=== PATIENT | male | born 1960 | race Caucasian/White ===

== ENCOUNTER 2018-02-21 11:14 | Emergency (ER) | payer BC ==
[~2018-02-21] VITALS: Ht 170.2 cm; Wt 124.7 kg
[~2018-02-21 11:14] MED LIST: ACEDIPPM PO; ASPI81CH PO; BUSP15 PO; ESCI20 PO; IBUP100S; IBUP400 PO; LISHYD1012; LISI20 PO; LISI5 PO; MAGOXI400 PO; METO100ER; METO50 PO; MULT50L; OXYC5 PO; PRAV20 PO; PRAVASTATIN SOD10 MG; RANI150 PO; WARF4 PO
[2018-02-21 11:40] LABS: BASOPHILS ABSOLUTE AUTO 0.03 K/mm3 (0.00-0.23); BASOPHILS PERCENT AUTO 0 % (0-2); EOSINOPHILS ABSOLUTE AUTO 0.01 K/mm3 (0.00-0.68); EOSINOPHILS PERCENT AUTO 0 % (0-6); Hematocrit 39.2 % (37.0-53.0); Hemoglobin 13.5 g/dL (13.5-17.5); IMMATURE GRAN ABSOLUTE AUTO 0.06 K/mm3 (0.00-0.10); IMMATURE GRAN PERCENT AUTO 1 % (0-1); LYMPHOCYTES ABSOLUTE AUTO 0.67 K/mm3 (0.84-5.20); LYMPHOCYTES PERCENT AUTO 7 % (21-46); MONOCYTES ABSOLUTE AUTO 0.64 K/mm3 (0.16-1.47); MONOCYTES PERCENT AUTO 7 % (4-13); Mean Corpuscular HGB 32.5 pg (26.0-34.0); Mean Corpuscular HGB Conc 34.4 g/dL (31.5-36.5); Mean Corpuscular Volume 95 fL (80-100); Mean Platelet Volume 8.5 fL (9.1-12.4); NEUTROPHILS ABSOLUTE AUTO 7.88 K/mm3 (1.96-9.15); NEUTROPHILS PERCENT AUTO 85 % (41-73); Platelet Count 308 K/mm3 (150-400); RDW Coefficient Variation 12.4 % (11.7-14.2); RDW Standard Deviation 43.3 fL (35.1-46.3); Red Blood Cell Count 4.15 M/mm3 (4.30-5.90); White Blood Cell Count 9.29 K/mm3 (4.00-11.30)
[2018-02-21 11:50] LABS: International Normalized Ratio 0.99; Prothrombin Time Results 10.2 Sec (9.7-11.5)
[2018-02-21 11:57] LABS: Alanine Aminotransfer (ALT/SGP 43 U/L (12-78); Albumin, Blood 4.2 g/dL (3.4-5.0); Albumin/Globulin Ratio 1.2 (0.8-1.8); Alk Phos 102 U/L (50-136); Anion Gap 10 mmol/L (6-16); Aspartate Aminotrans (AST/SGOT 32 U/L (12-37); Bilirubin, Total 0.9 mg/dL (0.1-1.0); Blood Urea Nitrogen 12 mg/dL (8-24); CO2, Blood 23 mmol/L (21-32); Chloride, Blood 95 mmol/L (98-108); Creatinine, Blood 0.75 mg/dL (0.60-1.20); Globulin, Blood 3.6 g/dL (2.2-4.0); Glomerular Filtration Rate >60 (60-); Glucose, Blood 172 mg/dL (70-99); Potassium, Blood 3.9 mmol/L (3.5-5.5); Sodium, Blood 128 mmol/L (136-145); Total Protein, Blood 7.8 g/dL (6.4-8.2)
[2018-02-21] MEDS ORDERED: Hydroxyzine HCl50 MG (12:00)
[2018-02-21] MEDS ORDERED: METO100ER PO (12:00)
[2018-02-21] MEDS ORDERED: Pantoprazole So40 MG PO (12:01)
[2018-02-21] MEDS ORDERED: HYDCHL25 PO (12:01)
[2018-02-21] MEDS ORDERED: Buspirone HCl7.5 MG PO (12:01)
[2018-02-21] MEDS ORDERED: AMLO10 PO (12:01)
== END 2018-02-21 14:08 | disposition home or self-care (01) ==
LOC: ER 11:14
PROVIDERS: Emergency Medicine
DX: R56.9 Unspecified convulsions (principal); Z79.899 Other long term (current) drug therapy; Z79.01 Long term (current) use of anticoagulants; I10 Essential (primary) hypertension; Z87.891 Personal history of nicotine dependence
CPT/HCPCS: 70450; 80053; 85025; 85610; 93005; 93010; 96361; 96374; 99285-25; J2060; J7030

== ENCOUNTER 2018-02-21 15:46 | Inpatient (IN) | payer BC ==
[~2018-02-21] VITALS: Ht 180.3 cm; Wt 130.0 kg
[~2018-02-21 15:46] MED LIST changes: +AMLO10 PO; +Buspirone HCl7.5 MG PO; +HYDCHL25 PO; +Hydroxyzine HCl50 MG; +METO100ER PO; +Pantoprazole So40 MG PO
[2018-02-21 20:20] LABS: BASOPHILS ABSOLUTE AUTO 0.05 K/mm3 (0.00-0.23); BASOPHILS PERCENT AUTO 1 % (0-2); EOSINOPHILS ABSOLUTE AUTO 0.04 K/mm3 (0.00-0.68); EOSINOPHILS PERCENT AUTO 0 % (0-6); Hemoglobin 13.4 g/dL (13.5-17.5); IMMATURE GRAN ABSOLUTE AUTO 0.09 K/mm3 (0.00-0.10); IMMATURE GRAN PERCENT AUTO 1 % (0-1); LYMPHOCYTES ABSOLUTE AUTO 1.14 K/mm3 (0.84-5.20); LYMPHOCYTES PERCENT AUTO 10 % (21-46); MONOCYTES ABSOLUTE AUTO 1.08 K/mm3 (0.16-1.47); MONOCYTES PERCENT AUTO 10 % (4-13); Mean Corpuscular HGB 33.2 pg (26.0-34.0); Mean Corpuscular HGB Conc 35.3 g/dL (31.5-36.5); Mean Corpuscular Volume 94 fL (80-100); Mean Platelet Volume 8.4 fL (9.1-12.4); NEUTROPHILS ABSOLUTE AUTO 8.71 K/mm3 (1.96-9.15); NEUTROPHILS PERCENT AUTO 78 % (41-73); Platelet Count 308 K/mm3 (150-400); RDW Coefficient Variation 12.5 % (11.7-14.2); RDW Standard Deviation 43.8 fL (35.1-46.3); Red Blood Cell Count 4.04 M/mm3 (4.30-5.90); White Blood Cell Count 11.11 K/mm3 (4.00-11.30)
[2018-02-21 20:33] LABS: Alanine Aminotransfer (ALT/SGP 47 U/L (12-78); Albumin, Blood 4.3 g/dL (3.4-5.0); Albumin/Globulin Ratio 1.2 (0.8-1.8); Alk Phos 100 U/L (50-136); Anion Gap 12 mmol/L (6-16); Aspartate Aminotrans (AST/SGOT 36 U/L (12-37); Bilirubin, Total 0.8 mg/dL (0.1-1.0); Blood Urea Nitrogen 12 mg/dL (8-24); CO2, Blood 19 mmol/L (21-32); Calcium, Blood 9.2 mg/dL (8.5-10.1); Chloride, Blood 97 mmol/L (98-108); Globulin, Blood 3.6 g/dL (2.2-4.0); Glomerular Filtration Rate >60 (60-); Glucose, Blood 128 mg/dL (70-99); Potassium, Blood 4.4 mmol/L (3.5-5.5); Sodium, Blood 128 mmol/L (136-145); Total Protein, Blood 7.9 g/dL (6.4-8.2)
[2018-02-21 23:33] LABS: U Amphetamine Screen Not Detected; U Barbituate Screen Not Detected; U Benzodiazapine Screen DETECTED; U Buprenorphine Screen Not Detected; U Cannabinoids Screen Not Detected; U Cocaine Screen Not Detected; U Methadone Screen Not Detected; U Methamphetamine Screen Not Detected; U Opiates Screen Not Detected; U Oxycodone Screen Not Detected; U Phencyclidine Screen Not Detected; U Propoxyphene Screen Not Detected
[2018-02-22 03:42] LABS: Albumin, Blood 3.6 g/dL (3.4-5.0); Anion Gap 9 mmol/L (6-16); Blood Urea Nitrogen 11 mg/dL (8-24); Bun/Creatinine Ratio 14.7 (12.0-20.0); CO2, Blood 23 mmol/L (21-32); Calcium, Blood 8.7 mg/dL (8.5-10.1); Chloride, Blood 100 mmol/L (98-108); Creatinine, Blood 0.75 mg/dL (0.60-1.20); Glomerular Filtration Rate >60 (60-); Glucose, Blood 109 mg/dL (70-99); Phosphorus, Blood 3.8 mg/dL (2.5-4.9); Potassium, Blood 4.3 mmol/L (3.5-5.5); Sodium, Blood 132 mmol/L (136-145)
[2018-02-23 03:56] LABS: BASOPHILS ABSOLUTE AUTO 0.04 K/mm3 (0.00-0.23); BASOPHILS PERCENT AUTO 1 % (0-2); EOSINOPHILS ABSOLUTE AUTO 0.14 K/mm3 (0.00-0.68); EOSINOPHILS PERCENT AUTO 2 % (0-6); Hematocrit 36.2 % (37.0-53.0); Hemoglobin 12.2 g/dL (13.5-17.5); IMMATURE GRAN ABSOLUTE AUTO 0.06 K/mm3 (0.00-0.10); IMMATURE GRAN PERCENT AUTO 1 % (0-1); LYMPHOCYTES ABSOLUTE AUTO 0.87 K/mm3 (0.84-5.20); LYMPHOCYTES PERCENT AUTO 10 % (21-46); MONOCYTES ABSOLUTE AUTO 1.08 K/mm3 (0.16-1.47); MONOCYTES PERCENT AUTO 12 % (4-13); Mean Corpuscular HGB Conc 33.7 g/dL (31.5-36.5); Mean Corpuscular Volume 95 fL (80-100); Mean Platelet Volume 8.6 fL (9.1-12.4); NEUTROPHILS ABSOLUTE AUTO 6.68 K/mm3 (1.96-9.15); NEUTROPHILS PERCENT AUTO 75 % (41-73); Platelet Count 279 K/mm3 (150-400); RDW Coefficient Variation 12.6 % (11.7-14.2); Red Blood Cell Count 3.81 M/mm3 (4.30-5.90); White Blood Cell Count 8.87 K/mm3 (4.00-11.30)
[2018-02-23 04:17] LABS: Alanine Aminotransfer (ALT/SGP 38 U/L (12-78); Albumin, Blood 3.7 g/dL (3.4-5.0); Albumin/Globulin Ratio 1.1 (0.8-1.8); Alk Phos 89 U/L (50-136); Anion Gap 9 mmol/L (6-16); Aspartate Aminotrans (AST/SGOT 31 U/L (12-37); Bilirubin, Total 0.7 mg/dL (0.1-1.0); Blood Urea Nitrogen 10 mg/dL (8-24); Bun/Creatinine Ratio 14.3 (12.0-20.0); CO2, Blood 26 mmol/L (21-32); Calcium, Blood 8.7 mg/dL (8.5-10.1); Chloride, Blood 97 mmol/L (98-108); Globulin, Blood 3.5 g/dL (2.2-4.0); Glomerular Filtration Rate >60 (60-); Glucose, Blood 93 mg/dL (70-99); Phosphorus, Blood 3.9 mg/dL (2.5-4.9); Potassium, Blood 4.3 mmol/L (3.5-5.5); Sodium, Blood 132 mmol/L (136-145); Total Protein, Blood 7.2 g/dL (6.4-8.2)
[2018-02-24 03:55] LABS: Albumin, Blood 3.5 g/dL (3.4-5.0); Anion Gap 8 mmol/L (6-16); Blood Urea Nitrogen 18 mg/dL (8-24); Bun/Creatinine Ratio 23.2 (12.0-20.0); CO2, Blood 23 mmol/L (21-32); Calcium, Blood 8.8 mg/dL (8.5-10.1); Chloride, Blood 98 mmol/L (98-108); Creatinine, Blood 0.78 mg/dL (0.60-1.20); Glomerular Filtration Rate >60 (60-); Glucose, Blood 105 mg/dL (70-99); Phosphorus, Blood 4.5 mg/dL (2.5-4.9); Potassium, Blood 4.2 mmol/L (3.5-5.5); Sodium, Blood 129 mmol/L (136-145)
[2018-02-24] MEDS ORDERED: Aspir 8181 MG PO (13:19)
== END 2018-02-24 13:45 | disposition home or self-care (01) | DRG 640 ==
LOC: ER 15:46 → ICUE 15:47 → ICUW 15:47 → ICUE 21:02
PROVIDERS: Emergency Medicine; Family Medicine; ADMIT Internal Medicine Endocrinology, Diabetes & Metabolism
DX: E87.1 Hypo-osmolality and hyponatremia (principal); G93.41 Metabolic encephalopathy; R47.01 Aphasia; Z68.41 Body mass index [BMI] 40.0-44.9, adult; I10 Essential (primary) hypertension; G43.909 Migraine, unspecified, not intractable, without status migrainosus; G47.33 Obstructive sleep apnea (adult) (pediatric); E66.01 Morbid (severe) obesity due to excess calories; K21.9 Gastro-esophageal reflux disease without esophagitis; F41.1 Generalized anxiety disorder; Z86.73 Personal history of transient ischemic attack (TIA), and cerebral infarction without residual deficits; Z79.82 Long term (current) use of aspirin; Z87.891 Personal history of nicotine dependence
CPT/HCPCS: 36415; 70450; 70551; 80053; 80069; 84100; 85025; 85610; 93005; 93010; 96361; 96372; 96374; 99285-25; J1630; J2060; J7030; Q3014

== ENCOUNTER 2018-03-11 18:52 | Emergency (ER) | payer BC ==
[~2018-03-11] VITALS: Ht 177.8 cm; Wt 136.1 kg
[~2018-03-11 18:52] MED LIST changes: +Aspir 8181 MG PO
[2018-03-11 19:20] LABS: BASOPHILS ABSOLUTE AUTO 0.04 K/mm3 (0.00-0.23); BASOPHILS PERCENT AUTO 1 % (0-2); EOSINOPHILS ABSOLUTE AUTO 0.06 K/mm3 (0.00-0.68); EOSINOPHILS PERCENT AUTO 1 % (0-6); Hematocrit 37.3 % (37.0-53.0); Hemoglobin 12.6 g/dL (13.5-17.5); IMMATURE GRAN ABSOLUTE AUTO 0.02 K/mm3 (0.00-0.10); IMMATURE GRAN PERCENT AUTO 0 % (0-1); LYMPHOCYTES ABSOLUTE AUTO 1.17 K/mm3 (0.84-5.20); LYMPHOCYTES PERCENT AUTO 14 % (21-46); MONOCYTES ABSOLUTE AUTO 0.81 K/mm3 (0.16-1.47); MONOCYTES PERCENT AUTO 10 % (4-13); Mean Corpuscular HGB 32.5 pg (26.0-34.0); Mean Corpuscular HGB Conc 33.8 g/dL (31.5-36.5); Mean Corpuscular Volume 96 fL (80-100); Mean Platelet Volume 8.4 fL (9.1-12.4); NEUTROPHILS ABSOLUTE AUTO 6.11 K/mm3 (1.96-9.15); NEUTROPHILS PERCENT AUTO 74 % (41-73); Platelet Count 397 K/mm3 (150-400); RDW Coefficient Variation 13.2 % (11.7-14.2); RDW Standard Deviation 46.5 fL (35.1-46.3); Red Blood Cell Count 3.88 M/mm3 (4.30-5.90); White Blood Cell Count 8.21 K/mm3 (4.00-11.30)
[2018-03-11 19:44] LABS: Alanine Aminotransfer (ALT/SGP 34 U/L (12-78); Albumin, Blood 3.7 g/dL (3.4-5.0); Albumin/Globulin Ratio 1.1 (0.8-1.8); Alk Phos 84 U/L (50-136); Anion Gap 10 mmol/L (6-16); Aspartate Aminotrans (AST/SGOT 27 U/L (12-37); Bilirubin, Total 0.4 mg/dL (0.1-1.0); Blood Urea Nitrogen 9 mg/dL (8-24); CO2, Blood 25 mmol/L (21-32); Calcium, Blood 8.9 mg/dL (8.5-10.1); Chloride, Blood 101 mmol/L (98-108); Creatinine, Blood 0.69 mg/dL (0.60-1.20); Globulin, Blood 3.4 g/dL (2.2-4.0); Glomerular Filtration Rate >60 (60-); Glucose, Blood 112 mg/dL (70-99); Potassium, Blood 3.7 mmol/L (3.5-5.5); Sodium, Blood 136 mmol/L (136-145); Total Protein, Blood 7.1 g/dL (6.4-8.2); Troponin I <0.015 ng/mL (0.000-0.040)
== END 2018-03-11 22:10 | disposition home or self-care (01) ==
LOC: ER 18:52
PROVIDERS: Emergency Medicine
DX: M54.12 Radiculopathy, cervical region (principal); Z79.899 Other long term (current) drug therapy; Z79.82 Long term (current) use of aspirin; I10 Essential (primary) hypertension; Z86.73 Personal history of transient ischemic attack (TIA), and cerebral infarction without residual deficits
CPT/HCPCS: 70450; 72125; 80053; 84484; 85025; 93005; 93010; 99284-25

== ENCOUNTER 2018-12-19 21:53 | Emergency (ER) | payer SELFPAY ==
[~2018-12-19] VITALS: Ht 177.8 cm; Wt 133.8 kg
[2018-12-19] MEDS ORDERED: Ativan1 MG PO (22:59)
[2018-12-21] MEDS ORDERED: AMLO10 (08:32)
[2018-12-21] MEDS ORDERED: BUSP5 (08:33)
== END 2018-12-19 23:30 | disposition home or self-care (01) ==
LOC: ER 21:53
DX: F41.0 Panic disorder [episodic paroxysmal anxiety] (principal); I10 Essential (primary) hypertension; Z86.73 Personal history of transient ischemic attack (TIA), and cerebral infarction without residual deficits; Z87.891 Personal history of nicotine dependence; Z79.899 Other long term (current) drug therapy
CPT/HCPCS: 99283

== ENCOUNTER 2021-02-09 22:42 | Inpatient (IN) | payer OTHER ==
[~2021-02-09] VITALS: Ht 175.3 cm; Wt 163.3 kg
[~2021-02-09 22:42] MED LIST changes: +Ativan1 MG PO; +BUSPIRONE HCL7.5 M1 PO; -LISI5 PO
[2021-02-10 00:29] LABS: BASOPHILS ABSOLUTE AUTO 0.03 K/mm3 (0.00-0.23); BASOPHILS PERCENT AUTO 0 % (0-2); EOSINOPHILS ABSOLUTE AUTO 0.07 K/mm3 (0.00-0.68); EOSINOPHILS PERCENT AUTO 1 % (0-6); Hematocrit 42.9 % (37.0-53.0); Hemoglobin 15.4 g/dL (13.5-17.5); IMMATURE GRAN ABSOLUTE AUTO 0.06 K/mm3 (0.00-0.10); IMMATURE GRAN PERCENT AUTO 1 % (0-1); LYMPHOCYTES ABSOLUTE AUTO 0.87 K/mm3 (0.84-5.20); LYMPHOCYTES PERCENT AUTO 9 % (21-46); MONOCYTES PERCENT AUTO 10 % (4-13); Mean Corpuscular HGB 32.9 pg (26.0-34.0); Mean Corpuscular HGB Conc 35.9 g/dL (31.5-36.5); Mean Corpuscular Volume 92 fL (80-100); Mean Platelet Volume 9.5 fL (9.1-12.4); NEUTROPHILS ABSOLUTE AUTO 7.55 K/mm3 (1.96-9.15); NEUTROPHILS PERCENT AUTO 80 % (41-73); Platelet Count 328 K/mm3 (150-400); RDW Coefficient Variation 11.8 % (11.7-14.2); RDW Standard Deviation 39.8 fL (35.1-46.3); Red Blood Cell Count 4.68 M/mm3 (4.30-5.90); White Blood Cell Count 9.48 K/mm3 (4.00-11.30)
[2021-02-10 00:36] LABS: Alanine Aminotransfer (ALT/SGP 102 U/L (12-78); Albumin, Blood 3.7 g/dL (3.4-5.0); Alk Phos 85 U/L (50-136); Anion Gap 11 mmol/L (6-16); Aspartate Aminotrans (AST/SGOT 42 U/L (12-37); Bilirubin, Total 0.8 mg/dL (0.1-1.0); Blood Urea Nitrogen 16 mg/dL (8-24); Bun/Creatinine Ratio 20.6 (12.0-20.0); CO2, Blood 26 mmol/L (21-32); Calcium, Blood 9.1 mg/dL (8.5-10.1); Chloride, Blood 84 mmol/L (98-108); Creatinine, Blood 0.78 mg/dL (0.60-1.20); Ethanol (Alcohol), Blood, Med <3 mg/dL; Globulin, Blood 3.7 g/dL (2.2-4.0); Glomerular Filtration Rate >60 (60-); Glucose, Blood 240 mg/dL (70-99); Potassium, Blood 3.5 mmol/L (3.5-5.5); Sodium, Blood 121 mmol/L (136-145); Total Protein, Blood 7.4 g/dL (6.4-8.2)
[2021-02-10 01:29] LABS: Source, Urine Clean Catch
[2021-02-10 01:47] LABS: Appearance, Urine Clear (Clear); Bilirubin, Urine Neg (Neg); Blood, Urine Neg (Neg); Color, Urine Yellow (P-Yellow); Glucose Qualitative, Urine 4+ (Neg); Ketones, Urine 3+ (Neg); Leukocyte Esterase, Urine Neg (Neg); Nitrite, Urine Neg (Neg); Protein, Urine 1+ (Neg); Specific Gravity, Urine 1.015 (1.003-1.022); Urobilinogen, Urine NORM (Normal)
[2021-02-10 02:13] LABS: U Amphetamine Screen Not Detected; U Barbituate Screen Not Detected; U Benzodiazapine Screen Not Detected; U Buprenorphine Screen Not Detected; U Cannabinoids Screen Not Detected; U Cocaine Screen Not Detected; U Methadone Screen Not Detected; U Methamphetamine Screen Not Detected; U Opiates Screen Not Detected; U Oxycodone Screen Not Detected; U Phencyclidine Screen Not Detected; U Propoxyphene Screen Not Detected
[2021-02-10 06:23] LABS: BASOPHILS ABSOLUTE AUTO 0.04 K/mm3 (0.00-0.23); BASOPHILS PERCENT AUTO 0 % (0-2); EOSINOPHILS ABSOLUTE AUTO 0.12 K/mm3 (0.00-0.68); EOSINOPHILS PERCENT AUTO 1 % (0-6); Hematocrit 42.8 % (37.0-53.0); Hemoglobin 15.8 g/dL (13.5-17.5); IMMATURE GRAN ABSOLUTE AUTO 0.08 K/mm3 (0.00-0.10); IMMATURE GRAN PERCENT AUTO 1 % (0-1); LYMPHOCYTES ABSOLUTE AUTO 1.09 K/mm3 (0.84-5.20); LYMPHOCYTES PERCENT AUTO 11 % (21-46); MONOCYTES ABSOLUTE AUTO 1.12 K/mm3 (0.16-1.47); MONOCYTES PERCENT AUTO 11 % (4-13); Mean Corpuscular HGB 33.6 pg (26.0-34.0); Mean Corpuscular HGB Conc 36.9 g/dL (31.5-36.5); Mean Corpuscular Volume 91 fL (80-100); Mean Platelet Volume 9.4 fL (9.1-12.4); NEUTROPHILS ABSOLUTE AUTO 7.91 K/mm3 (1.96-9.15); NEUTROPHILS PERCENT AUTO 76 % (41-73); Platelet Count 319 K/mm3 (150-400); RDW Coefficient Variation 11.8 % (11.7-14.2); RDW Standard Deviation 39.5 fL (35.1-46.3); White Blood Cell Count 10.36 K/mm3 (4.00-11.30)
[2021-02-10 06:52] LABS: Anion Gap 9 mmol/L (6-16); Blood Urea Nitrogen 14 mg/dL (8-24); Bun/Creatinine Ratio 18.8 (12.0-20.0); CO2, Blood 27 mmol/L (21-32); Calcium, Blood 9.3 mg/dL (8.5-10.1); Chloride, Blood 87 mmol/L (98-108); Creatinine, Blood 0.75 mg/dL (0.60-1.20); Glomerular Filtration Rate >60 (60-); Glucose, Blood 180 mg/dL (70-99); Potassium, Blood 3.6 mmol/L (3.5-5.5); Sodium, Blood 123 mmol/L (136-145)
[2021-02-10 08:49] LABS: Anion Gap 9 mmol/L (6-16); Blood Urea Nitrogen 14 mg/dL (8-24); Bun/Creatinine Ratio 21.5 (12.0-20.0); CO2, Blood 26 mmol/L (21-32); Calcium, Blood 9.1 mg/dL (8.5-10.1); Chloride, Blood 88 mmol/L (98-108); Creatinine, Blood 0.65 mg/dL (0.60-1.20); Glomerular Filtration Rate >60 (60-); Glucose, Blood 197 mg/dL (70-99); Potassium, Blood 3.8 mmol/L (3.5-5.5); Sodium, Blood 123 mmol/L (136-145)
[2021-02-10 13:46] LABS: Anion Gap 9 mmol/L (6-16); Blood Urea Nitrogen 14 mg/dL (8-24); Bun/Creatinine Ratio 20.4 (12.0-20.0); CO2, Blood 25 mmol/L (21-32); Calcium, Blood 9.1 mg/dL (8.5-10.1); Chloride, Blood 90 mmol/L (98-108); Creatinine, Blood 0.69 mg/dL (0.60-1.20); Glomerular Filtration Rate >60 (60-); Glucose, Blood 201 mg/dL (70-99); Sodium, Blood 124 mmol/L (136-145)
[2021-02-10] MEDS ORDERED: INSULIN AS100 UNIT/8 SC (16:00)
[2021-02-10] MEDS ORDERED: HYDCHL25 PO (16:02)
[2021-02-10] MEDS ORDERED: METF500 PO (16:04)
[2021-02-10] MEDS ORDERED: PANTOPRAZOLE SO40 M2 PO (16:04)
[2021-02-10 17:16] LABS: Anion Gap 8 mmol/L (6-16); Blood Urea Nitrogen 14 mg/dL (8-24); Bun/Creatinine Ratio 18.4 (12.0-20.0); CO2, Blood 26 mmol/L (21-32); Calcium, Blood 9.3 mg/dL (8.5-10.1); Chloride, Blood 92 mmol/L (98-108); Creatinine, Blood 0.76 mg/dL (0.60-1.20); Glomerular Filtration Rate >60 (60-); Glucose, Blood 137 mg/dL (70-99); Potassium, Blood 4.3 mmol/L (3.5-5.5); Sodium, Blood 126 mmol/L (136-145)
--- NOTE | 2021-02-10 18:40 | NUR ---
pt needs a lot of repeating to help him understand simple things. spoke to his niece who is a nurse and she states he is childlike. he is cooperative with care, no acute changes this shift. call light in reach.
[2021-02-11 04:28] LABS: Albumin, Blood 3.6 g/dL (3.4-5.0); Anion Gap 10 mmol/L (6-16); Blood Urea Nitrogen 13 mg/dL (8-24); Bun/Creatinine Ratio 17.7 (12.0-20.0); CO2, Blood 27 mmol/L (21-32); Chloride, Blood 92 mmol/L (98-108); Creatinine, Blood 0.74 mg/dL (0.60-1.20); Glomerular Filtration Rate >60 (60-); Glucose, Blood 160 mg/dL (70-99); Magnesium, Blood 1.8 mg/dL (1.6-2.4); Phosphorus, Blood 3.3 mg/dL (2.5-4.9); Potassium, Blood 4.1 mmol/L (3.5-5.5); Sodium, Blood 129 mmol/L (136-145)
--- NOTE | 2021-02-11 05:44 | NUR ---
PT HAS BEEN AWAKE FOR MOST OF THE NIGHT, ABLE TO ANSWER ALL ORIENTATION QUESTIONS, HOWEVER HE HAS BEEN CONFUSED AND AT TIMES DISORGANIZED SPEECH. PT LS DIM FROM LOWER TO MIDDLE. BLE 3+ EDEMA. DISTENDED ABD, PT STATES IS NORMAL.IV INFUSING NS AT 125. PT MAKES NO COMPLAINTS. STAFF WILL CONT TO MONITOR.
--- NOTE | 2021-02-11 08:20 | NUR ---
Initial Assessment with [facility] Community Spinning Machine Tender 1. Who did you speak with? Spoke with patient and spoke with arlen Cavanaugh over the phone. 2. What is the patient's prior level of functions? Patient lives independently in a two story home with 11 stairs. Patient able to perform basic housekeeping and cooking needs. Patient is somewhat confused and disoriented; worried about his truck and job orientation. Could not assess prior level of function. But patient was going to a job orientation for [employer] and his red [facility] ton extra cab is still parked by [facility] (per 's office). 3. What is the patient's current living situation? Patient lives independent and has a arlen Cavanaugh whom is an RN at [employer], 4. Is the patient and/or family able to provide transportation to and from doctor's appointments and picker tender prescriptions? Patient still drives and has transportation. 5. Does patient still drive? Yes 6. POA/PCP/NOK: PCP-Dr. Ronnie Dodd/NOK arlen Cavanaugh 7. ANTICIPATED DISCHARGE NEEDS/GOALS: TBD 8. List barriers to discharge: Limited support at home 9. Discharge Plan: TBD 10. PCP Follow up appointment: Will be scheduled within seven calendar days of discharge. 11. OTHER COMMENTS: Arlen Cavanaugh is an advocate for patient.
--- NOTE | 2021-02-11 12:31 | NUR ---
Spiritual care visit conducted. Patient is sitting on a chair and alert. Patient asks for reading glasses and reading material. Patient then shares about his medical issues, his personal struggles and his challenges to remain hopeful. I provide therapeutic listening and gentle food counselor as well as supply him with positive large print reading materials. Patient responds well and shows signs of increased hope. I will continue to remain available.
--- NOTE | 2021-02-11 18:12 | NUR ---
SHIFT SUMMARY 61 Y MALE ADMITTED WITH HYPONATREMIA. SODIUM IMPROVED TO 131 THIS MORNING AFTER STOPPING IVF X 2 HOURS. PT IS A&O, UP IND IN ROOM AND PLEASANT AND COOPERATIVE WITH CARE. PT DID HAVE HTN AT BEGINING OF SHIFT, IV MEDS GIVEN PER EMAR AND BP MED DOSE ADJUSTED BY . D/C PENDING FOR TOMORROW AM DEPENDING ON NA+ RESULTS AND BP'S. NO OTHER SHIFTS TO REPORT THIS SHIFT.
[2021-02-12 05:09] LABS: Albumin, Blood 3.3 g/dL (3.4-5.0); Anion Gap 7 mmol/L (6-16); Blood Urea Nitrogen 17 mg/dL (8-24); Bun/Creatinine Ratio 22.1 (12.0-20.0); CO2, Blood 27 mmol/L (21-32); Calcium, Blood 9.4 mg/dL (8.5-10.1); Chloride, Blood 99 mmol/L (98-108); Creatinine, Blood 0.77 mg/dL (0.60-1.20); Glomerular Filtration Rate >60 (60-); Glucose, Blood 131 mg/dL (70-99); Magnesium, Blood 2.1 mg/dL (1.6-2.4); Phosphorus, Blood 4.1 mg/dL (2.5-4.9); Potassium, Blood 4.4 mmol/L (3.5-5.5); Sodium, Blood 133 mmol/L (136-145)
--- NOTE | 2021-02-12 05:22 | NUR ---
SHIFT SUMMARY PT AOX2-3 AND PLEASANT WITH STAFF WHILE COOPERATIVE WITH CARE. PT TOOK A SHOWER AT THE START OF THIS SHIFT AND TOLERATED WELL INDEPENDENTLY. PT CAME OUT IN THE [place] NAKED TWICE BUT WAS EASY TO REDIRECT. PT. WAS MEDICATED PER EMAR AND RESTED WELL THIS SHIFT. PT STILL ASLEEP IN BED WITH RISE AND FALL OF CHEST. THIS NURSE WILL CONTINUE TO MONITOR UNTIL REPORT IS GIVEN.
[2021-02-12] MEDS ORDERED: NIFE90ER PO (10:13)
--- NOTE | 2021-02-12 10:29 | NUR ---
DISCHARGE NOTE D/C ORDERS RECIEVED AND REVIEWED. HOME MEDS CALLED IN TO PT'S PHARMACY OF CHOICE. D/C INSTRUDCTIONS AND EDUCATION REVIEWED WITH PT. PT VERBALIZED UNDERSTANDING AND AGREED WITH PLAN. RFA IV REMOVED INTACT WITHOUT DIFFICULTY, PT TOLERATED WELL. PT ESCORTED OUT VIA W/C AND TRANSPORTED HOME VIA PRIVATE VEHICLE.
--- NOTE | 2021-02-14 08:15 | NUR ---
Per Dr. Higgins discharge appropriate on 02/12/21. Patient does not oppose to discharge. Patient scheduled for discharged to his residence. Niece dropped off patient's truck; transportation provided by patient to residence. DME: none needed at this time. Patient's niece is an RN at [employer] and she is aware of patient's discharge and medical needs. [facility] Transition of Care will contact patient to schedule hospital follow up appointment with PCP. Home Health Agency of patient's choice will be contacted for assisted needs. No barriers to discharge at this time.
--- NOTE | 2021-02-15 08:43 | NUR ---
Received referral from [facility] General Distillery Worker (Elizabeth Jarvis OR Aliyah Díaz) yesterday- 02/13/2021. Patient was admitted to [facility] on 02/10/2021 due to hyponatremia. Patient discharged over the weekend- 02/12/2021 with orders for home health. Per referral today, patient elected [facility]. As patient discharged over the weekend, this freelance writer did not contact patient at home to confirm the above. All supporting documentation for referral (face sheet, face to face, med list, H&P, discharge summary, and most recent PT notes) was sent to [facility] for review. No further interventions required. Beata Cole Referral Liaison
== END 2021-02-12 10:28 | disposition home health service (06) | DRG 641 ==
LOC: ER 22:42 → ERHOLD 22:43 → MEDS 02-10 15:03
PROVIDERS: Family Medicine; Student in an Organized Health Care Education/Training Program; ADMIT Family Medicine
DX: E87.1 Hypo-osmolality and hyponatremia (principal); Z68.43 Body mass index [BMI] 50.0-59.9, adult; I10 Essential (primary) hypertension; E66.01 Morbid (severe) obesity due to excess calories; I25.10 Atherosclerotic heart disease of native coronary artery without angina pectoris; E11.9 Type 2 diabetes mellitus without complications; F41.9 Anxiety disorder, unspecified; F17.220 Nicotine dependence, chewing tobacco, uncomplicated; Z90.49 Acquired absence of other specified parts of digestive tract; Z86.73 Personal history of transient ischemic attack (TIA), and cerebral infarction without residual deficits; Z98.890 Other specified postprocedural states; Z79.899 Other long term (current) drug therapy; Z28.82 Immunization not carried out because of caregiver refusal
CPT/HCPCS: 36415; 70450; 80048; 80053; 80069; 82947; 83036; 83735; 84295; 85025; 93005; 93010; 96372; 99285-25; A9270; G0480; J0360; J1650; J7030

== ENCOUNTER 2024-09-19 12:26 | Inpatient (IN) | payer OTHER ==
[~2024-09-19] VITALS: Ht 182.9 cm; Wt 129.1 kg
[~2024-09-19 12:26] MED LIST changes: +INSULIN AS100 UNIT/8 SC; +METF500 PO; +NIFE90ER PO; +PANTOPRAZOLE SO40 M2 PO
[2024-09-19 13:10] LABS: BASOPHILS ABSOLUTE AUTO 0.03 K/mm3 (0.00-0.23); BASOPHILS PERCENT AUTO 0 % (0-2); EOSINOPHILS ABSOLUTE AUTO 0.00 K/mm3 (0.00-0.68); EOSINOPHILS PERCENT AUTO 0 % (0-6); Hematocrit 45.9 % (37.0-53.0); Hemoglobin 16.4 g/dL (13.5-17.5); IMMATURE GRAN ABSOLUTE AUTO 0.07 K/mm3 (0.00-0.10); IMMATURE GRAN PERCENT AUTO 0 % (0-1); LYMPHOCYTES ABSOLUTE AUTO 0.92 K/mm3 (0.84-5.20); LYMPHOCYTES PERCENT AUTO 6 % (21-46); MONOCYTES ABSOLUTE AUTO 1.10 K/mm3 (0.16-1.47); MONOCYTES PERCENT AUTO 7 % (4-13); Mean Corpuscular HGB Conc 35.7 g/dL (31.5-36.5); Mean Corpuscular Volume 95 fL (80-100); NEUTROPHILS ABSOLUTE AUTO 14.16 K/mm3 (1.96-9.15); NEUTROPHILS PERCENT AUTO 87 % (41-73); NRBC ABSOLUTE 0.00 K/mm3 (0.00-0.02); NRBC Auto 0.0 /100 WBC (0.0-0.2); Platelet Count 260 K/mm3 (150-400); RDW Coefficient Variation 13.3 % (11.7-14.2); RDW Standard Deviation 46.5 fL (35.1-46.3)
[2024-09-19 13:41] LABS: Alanine Aminotransfer (ALT/SGP 36.0 U/L (12-78); Albumin, Blood 4.3 g/dL (3.4-5.0); Albumin/Globulin Ratio 1.1 (0.8-1.8); Anion Gap 18.0 mmol/L (3-11); Aspartate Aminotrans (AST/SGOT 24.0 U/L (12-37); Bilirubin, Total 0.8 mg/dL (0.1-1.0); Blood Urea Nitrogen 45.0 mg/dL (8-24); CO2, Blood 18.0 mmol/L (21-32); Calcium, Blood 9.7 mg/dL (8.5-10.1); Chloride, Blood 96.0 mmol/L (98-108); Creatinine, Blood 6.74 mg/dL (0.60-1.20); Globulin, Blood 4.0 g/dL (2.2-4.0); Glucose, Blood 179.0 mg/dL (70-99); Potassium, Blood 2.7 mmol/L (3.5-5.5); Sodium, Blood 129.0 mmol/L (136-145); Total Protein, Blood 8.3 g/dL (6.4-8.2)
[2024-09-19] MEDS ORDERED: NS 1,000 ML IV SCH ×4 (14:00→15:05)
[2024-09-19 15:10] LABS: Calcium, Ionized (POC) 1.16 mmol/L (1.10-1.46); Chloride (POC) 102 mmol/L (98-108); Creatinine (POC) 7.8 mg/dL (0.8-1.3); Glucose (ISTAT POC) 160 mg/dL (70-99); Hematocrit (POC) 49.0 % (41.0-53.0); Hemoglobin (POC) 16.7 g/dL (13.5-17.5); Potassium (POC) 3.9 mmol/L (3.5-5.5); Sodium (POC) 134 mmol/L (135-148); Total CO2 (POC) 19 mmol/L (21-32)
[2024-09-19] MEDS ORDERED: Insulin Regular 100 UNIT/ML 10ML Vial SC SCH (16:30)
[2024-09-19 17:03] VITALS: BP 113/69
[2024-09-19] MEDS ORDERED: FUROSEMIDE40 MG PO (17:52)
[2024-09-19] MEDS ORDERED: K-TAB ER20 ME1 PO (17:53)
[2024-09-19] MEDS ORDERED: AMLODIPINE BESYL5 MG PO (17:54)
[2024-09-19] MEDS ORDERED: TRAZ50 PO (17:54)
[2024-09-19] MEDS ORDERED: ELIQUIS5 M3 PO (17:55)
[2024-09-19 19:40] VITALS: BP 98/54
[2024-09-19 20:30] VITALS: BP 99/57
[2024-09-19 21:46] LABS: Campylobacter Sp Not Detected (NOT DETECT); E. Coli O157 Not Detected (NOT DETECT); Enteroaggregative E. coli-EAEC Not Detected (NOT DETECT); Enteropathogenic E. coli-EPEC Not Detected (NOT DETECT); Enterotoxigenic E. coli-ETEC Not Detected (NOT DETECT); Salmonella Sp Not Detected (NOT DETECT); Shiga Toxin-prod E. coli-STEC Not Detected (NOT DETECT); Shigella/Enteroin E. coli-EIEC Not Detected (NOT DETECT); Vibrio Sp Not Detected (NOT DETECT)
[2024-09-19 22:10] LABS: Potassium, Blood 3.5 mmol/L (3.5-5.5)
[2024-09-19 22:12] VITALS: BP 93/52
[2024-09-19 22:30] VITALS: BP 113/67
[2024-09-19 23:00] VITALS: BP 121/55
[2024-09-19 23:03] LABS: Anion Gap 19.0 mmol/L (3-11); Blood Urea Nitrogen 52.0 mg/dL (8-24); CO2, Blood 17.0 mmol/L (21-32); Calcium, Blood 9.3 mg/dL (8.5-10.1); Chloride, Blood 100.0 mmol/L (98-108); Creatinine, Blood 7.57 mg/dL (0.60-1.20); Glucose, Blood 166.0 mg/dL (70-99); Sodium, Blood 132.0 mmol/L (136-145)
[2024-09-20] VITALS (7 sets, daily range): BP systolic 90–155; BP diastolic 59–89
[2024-09-20 03:26] LABS: BASOPHILS ABSOLUTE AUTO 0.05 K/mm3 (0.00-0.23); BASOPHILS PERCENT AUTO 0 % (0-2); EOSINOPHILS ABSOLUTE AUTO 0.04 K/mm3 (0.00-0.68); EOSINOPHILS PERCENT AUTO 0 % (0-6); Hematocrit 47.6 % (37.0-53.0); Hemoglobin 16.5 g/dL (13.5-17.5); IMMATURE GRAN ABSOLUTE AUTO 0.08 K/mm3 (0.00-0.10); IMMATURE GRAN PERCENT AUTO 1 % (0-1); LYMPHOCYTES ABSOLUTE AUTO 1.13 K/mm3 (0.84-5.20); LYMPHOCYTES PERCENT AUTO 7 % (21-46); MONOCYTES ABSOLUTE AUTO 1.68 K/mm3 (0.16-1.47); MONOCYTES PERCENT AUTO 11 % (4-13); Mean Corpuscular HGB Conc 34.7 g/dL (31.5-36.5); Mean Corpuscular Volume 99 fL (80-100); NEUTROPHILS ABSOLUTE AUTO 12.32 K/mm3 (1.96-9.15); NEUTROPHILS PERCENT AUTO 81 % (41-73); NRBC ABSOLUTE 0.00 K/mm3 (0.00-0.02); NRBC Auto 0.0 /100 WBC (0.0-0.2); Platelet Count 183 K/mm3 (150-400); RDW Coefficient Variation 13.8 % (11.7-14.2); RDW Standard Deviation 50.2 fL (35.1-46.3)
[2024-09-20 03:44] LABS: Albumin, Blood 3.8 g/dL (3.4-5.0); Anion Gap 17 mmol/L (3-11); Blood Urea Nitrogen 54 mg/dL (8-24); CO2, Blood 12 mmol/L (21-32); Calcium, Blood 8.6 mg/dL (8.5-10.1); Chloride, Blood 103 mmol/L (98-108); Creatinine, Blood 7.52 mg/dL (0.60-1.20); Glucose, Blood 142 mg/dL (70-99); Phosphorus, Blood 5.8 mg/dL (2.5-4.9); Potassium, Blood 3.5 mmol/L (3.5-5.5); Sodium, Blood 128 mmol/L (136-145)
[2024-09-20 04:57] LABS: Source, Urine Voided
[2024-09-20 05:03] LABS: Glucose Qualitative, Urine 2+ (Neg); Ketones, Urine Neg (Neg); Leukocyte Esterase, Urine 3+ (Neg); Protein, Urine 3+ (Neg); Specific Gravity, Urine 1.030 (1.003-1.022); Urobilinogen, Urine 1+ (Normal)
--- NOTE | 2024-09-20 05:12 | NUR ---
SHIFT SUMMARY THIS RN ASSUMED CARE OF PATIENT AT 1900. PT A&O X4. ABLE TO MAKE NEEDS KNOWN. AFIB ON MONITOR WITH HR 90-100'S. BP LABILE DURING THIS SHIFT. SBP MOSTLY IN THE 90'S. ON RA WITH SPO2 >92%. CPAP FOR NOC. PT 1P ASSIST WITH FWW TO BSC. CALLING APPROPRIATELY. BED ALARM ON FOR SAFETY. GI PANEL NEGATIVE, CONTINUES TO HAVE DIARHHEA. PARK CATHETER IN PLACE DRAINING TO GRAVITY, ONLY 20MLS OF URINE PRODUCED. SENT FOR LAB ORDERS. CALL PLACED TO MD GALVEZ WITH NEPHROLOGY REGARDING WORSENING KIDNEY FUNCTION LACK OF URINE PRODUCTION. MD GALVEZ WITH NO NEW ORDERS. PT CONTINUES TO HAVE NS INFUSING AT 125MLS/HR PER EMAR. BED IN LOWEST POSITION AND CALL LIGHT WITHIN REACH. THIS RN WILL REPORT TO ONCOMING DAYSHIFT RN.
[2024-09-20 05:22] LABS: Bilirubin, Urine 2+ (Neg); Color, Urine Amber (P-Yellow)
[2024-09-20 05:24] LABS: Red Blood Cells, Urine 50-100 /hpf (0-2); White Blood Cells, Urine 25-50 /hpf (0-5)
[2024-09-20] MEDS ORDERED: CefTRIAXone Sodium 1,000 MG in NS 100 ML IV SCH (10:30)
[2024-09-20] MEDS ORDERED: Sodium Bicarb 8.4% Inj 150 MEQ in Dextrose 5% 1,000 ML IV SCH (12:00)
--- NOTE | 2024-09-20 18:50 | NUR ---
PT NS FLUIDS DISCOUNTINUED. PT STARTED ON SODIUM BICARB AT 100 ML/HR.PT IS MAKING URINE 320 ML FOR DAY SHIFT. HR 70S-90S. BP HIGH 80S - LOW 100. MAP 60 AND UP. PT ON MIDODRINE.
[2024-09-20] MEDS ORDERED: Lactobacil 2-S.Thermo-Bifido 1 1 Cap PO SCH (21:00)
--- NOTE | 2024-09-20 23:52 | NUR ---
MD NOTIFICATION PT HAD 10 BEAT RUN VTACH GETTING UP TO BEDSIDE COMMODE TO HAVE BM. PT DENIED ANY CHESTPAIN OR DIZZINESS OR SYMPTOMS. PT RETURNED TO BED, VSS AND PT HEART REATE RETURNED TO BASELINE CONTROLLED AFIB. MD Argueta CALLED AND MAG ORDERED W AM LABS AFTER REVIEWING MEDS AND VS.
[2024-09-21 03:21] VITALS: BP 107/65
[2024-09-21 03:47] LABS: BASOPHILS ABSOLUTE AUTO 0.04 K/mm3 (0.00-0.23); BASOPHILS PERCENT AUTO 0 % (0-2); EOSINOPHILS ABSOLUTE AUTO 0.08 K/mm3 (0.00-0.68); EOSINOPHILS PERCENT AUTO 1 % (0-6); Hematocrit 41.6 % (37.0-53.0); Hemoglobin 14.5 g/dL (13.5-17.5); IMMATURE GRAN ABSOLUTE AUTO 0.03 K/mm3 (0.00-0.10); IMMATURE GRAN PERCENT AUTO 0 % (0-1); LYMPHOCYTES ABSOLUTE AUTO 1.23 K/mm3 (0.84-5.20); LYMPHOCYTES PERCENT AUTO 12 % (21-46); MONOCYTES ABSOLUTE AUTO 1.31 K/mm3 (0.16-1.47); MONOCYTES PERCENT AUTO 13 % (4-13); Mean Corpuscular HGB Conc 34.9 g/dL (31.5-36.5); Mean Corpuscular Volume 98 fL (80-100); NEUTROPHILS ABSOLUTE AUTO 7.25 K/mm3 (1.96-9.15); NEUTROPHILS PERCENT AUTO 73 % (41-73); NRBC ABSOLUTE 0.00 K/mm3 (0.00-0.02); NRBC Auto 0.0 /100 WBC (0.0-0.2); Platelet Count 158 K/mm3 (150-400); RDW Coefficient Variation 13.6 % (11.7-14.2); RDW Standard Deviation 49.2 fL (35.1-46.3)
[2024-09-21 04:03] LABS: Albumin, Blood 3.4 g/dL (3.4-5.0); Anion Gap 13 mmol/L (3-11); Blood Urea Nitrogen 68 mg/dL (8-24); CO2, Blood 20 mmol/L (21-32); Calcium, Blood 8.5 mg/dL (8.5-10.1); Chloride, Blood 103 mmol/L (98-108); Creatinine, Blood 4.60 mg/dL (0.60-1.20); Glucose, Blood 128 mg/dL (70-99); Magnesium, Blood 2.2 mg/dL (1.6-2.4); Phosphorus, Blood 4.1 mg/dL (2.5-4.9); Potassium, Blood 3.3 mmol/L (3.5-5.5); Sodium, Blood 133 mmol/L (136-145)
--- NOTE | 2024-09-21 07:44 | NUR ---
END OF SHIFT REPORT PT MADE 550 CC URINE MEASURED VIA PARK FOR THIS 12 HOUR SHIFT. PT HAD 2 SOFT BMS OVERNIGHT AT BEDSIDE COMMODE. PT VSS, REFUSED SCDS THIS SHIFT AND DID NOT WEAR HIS HOME CPAP. PT MAITAINED O2 SATS OVERNIGHT ON ROOM AIR. PT REMAINS IN CONTROLLED AFIB OVERNIGHT WIT ONE EPOSODE AT 2319 OF 10 BEAT VTACH RETURNING TO BASELINE AFIB. PT DENIED ANY SYMPTOMS. VS TAKEN AND NIGHT UPDATED AND NEW ORDER FOR MAG PLACED AFTER REVIEWING SCHEDULED AM LABS. REPORT GIVEN TO DAY RN AT BEDSIDE AND PLAN OF CARE DISCUSSED. PT VERY HAPPY HE IS AGAIN MAKING URINE.
[2024-09-21 08:08] VITALS: BP 120/63
[2024-09-21 12:22] VITALS: BP 114/68
--- NOTE | 2024-09-21 17:01 | NUR ---
SHIFT SUMMARY/TRANSFER: PT CONTINUES A&Ox4, COOPERATIVE W/CARE, ABLE TO MAKE NEEDS KNOWN. PT DENIES SOB OR CP T/OUT THE DAY. O2 SATS MAINTAINED >93% ON RA, AFIB ON MONITOR RATE CONTROLLED IN 80s-90s. SBA TO BSC, PT MEDICATED x1 FOR LOOSE STOOL. URINE OUTPUT CONTINUES TO IMPROVE, PARK CATHETER CONTINUES PATENT AND DRAINING YELLOW COLORED URINE TO GRAVITY. SODIUM BICARB INFUSING PER ORDERS. PT ADMISSION STATUS IMPROVED TO MEDICAL, PT RECEIVES NEW ROOM, REPORT GIVEN TO CARMEN MAIN TO RECEIVE PT AND PT TRANSFERED W/OUT INCIDENT.
[2024-09-21 17:09] VITALS: BP 130/105
--- NOTE | 2024-09-21 18:23 | NUR ---
ASSUMED CARE OF PT A/O X 4 VSS, 1 PERSON STANDBY ASSIST. PARK DRAINING CLR YELLOW. IV TO LEFT FA INFUSING BICARB AT 100. NO C/O PAIN CALL LIGHT AT SIDE. PT MAKES NEEDS KNOWS.
[2024-09-21 20:32] VITALS: BP 108/58
[2024-09-22 04:21] VITALS: BP 149/83
[2024-09-22 05:46] LABS: BASOPHILS ABSOLUTE AUTO 0.02 K/mm3 (0.00-0.23); BASOPHILS PERCENT AUTO 0 % (0-2); EOSINOPHILS ABSOLUTE AUTO 0.09 K/mm3 (0.00-0.68); EOSINOPHILS PERCENT AUTO 2 % (0-6); Hematocrit 37.1 % (37.0-53.0); Hemoglobin 13.4 g/dL (13.5-17.5); IMMATURE GRAN ABSOLUTE AUTO 0.02 K/mm3 (0.00-0.10); IMMATURE GRAN PERCENT AUTO 0 % (0-1); LYMPHOCYTES ABSOLUTE AUTO 0.87 K/mm3 (0.84-5.20); LYMPHOCYTES PERCENT AUTO 15 % (21-46); MONOCYTES ABSOLUTE AUTO 0.78 K/mm3 (0.16-1.47); MONOCYTES PERCENT AUTO 13 % (4-13); Mean Corpuscular HGB Conc 36.1 g/dL (31.5-36.5); Mean Corpuscular Volume 96 fL (80-100); NEUTROPHILS ABSOLUTE AUTO 4.07 K/mm3 (1.96-9.15); NEUTROPHILS PERCENT AUTO 70 % (41-73); NRBC ABSOLUTE 0.00 K/mm3 (0.00-0.02); NRBC Auto 0.0 /100 WBC (0.0-0.2); Platelet Count 169 K/mm3 (150-400); RDW Coefficient Variation 13.5 % (11.7-14.2); RDW Standard Deviation 47.7 fL (35.1-46.3)
--- NOTE | 2024-09-22 05:52 | NUR ---
PT A&OX4, HAS HAD 3 LOOSE STOOL THIS SHIFT. IMODIUM GIVEN RX. IVF INFUSING WITHOUT DIFFICULTY. PT HAS REFUSED MIDNIGHT VITALS. PT ABD DISTENDED AND FIRM PT STATES THIS IS NORMAL. PT STEADY ON FEET USING FWW WITH A STANDBY ASSIST DUE TO ALL OF HIS TUBES AND DRAINES. PARK PATENT AND INTACT AND DRAINING CLEAR YELLOW URINE.
[2024-09-22 06:20] LABS: Albumin, Blood 3.1 g/dL (3.4-5.0); Anion Gap 7 mmol/L (3-11); Blood Urea Nitrogen 44 mg/dL (8-24); CO2, Blood 29 mmol/L (21-32); Calcium, Blood 8.3 mg/dL (8.5-10.1); Chloride, Blood 104 mmol/L (98-108); Creatinine, Blood 1.02 mg/dL (0.60-1.20); Glucose, Blood 143 mg/dL (70-99); Phosphorus, Blood 2.3 mg/dL (2.5-4.9); Potassium, Blood 3.0 mmol/L (3.5-5.5); Sodium, Blood 137 mmol/L (136-145)
[2024-09-22 07:36] VITALS: BP 132/59
[2024-09-22] MEDS ORDERED: Potassium Phosphate Dibasic 20 MM in Dextrose 5% 500 ML IV STA (11:15)
[2024-09-22] MEDS ORDERED: NS 250 ML IV PRN (11:40)
[2024-09-22 12:27] VITALS: BP 125/69
[2024-09-22 16:29] VITALS: BP 150/68
[2024-09-22 20:43] VITALS: BP 126/61
[2024-09-23 00:23] VITALS: BP 140/57
[2024-09-23 05:03] LABS: BASOPHILS ABSOLUTE AUTO 0.02 K/mm3 (0.00-0.23); BASOPHILS PERCENT AUTO 0 % (0-2); EOSINOPHILS ABSOLUTE AUTO 0.11 K/mm3 (0.00-0.68); EOSINOPHILS PERCENT AUTO 2 % (0-6); Hematocrit 35.9 % (37.0-53.0); Hemoglobin 12.4 g/dL (13.5-17.5); IMMATURE GRAN ABSOLUTE AUTO 0.02 K/mm3 (0.00-0.10); IMMATURE GRAN PERCENT AUTO 0 % (0-1); LYMPHOCYTES ABSOLUTE AUTO 0.92 K/mm3 (0.84-5.20); LYMPHOCYTES PERCENT AUTO 18 % (21-46); MONOCYTES ABSOLUTE AUTO 0.65 K/mm3 (0.16-1.47); MONOCYTES PERCENT AUTO 12 % (4-13); Mean Corpuscular HGB Conc 34.5 g/dL (31.5-36.5); Mean Corpuscular Volume 98 fL (80-100); NEUTROPHILS ABSOLUTE AUTO 3.55 K/mm3 (1.96-9.15); NEUTROPHILS PERCENT AUTO 67 % (41-73); NRBC ABSOLUTE 0.00 K/mm3 (0.00-0.02); NRBC Auto 0.0 /100 WBC (0.0-0.2); Platelet Count 163 K/mm3 (150-400); RDW Coefficient Variation 13.5 % (11.7-14.2); RDW Standard Deviation 49.1 fL (35.1-46.3)
[2024-09-23 05:39] LABS: Albumin, Blood 3.1 g/dL (3.4-5.0); Anion Gap 8 mmol/L (3-11); Blood Urea Nitrogen 24 mg/dL (8-24); CO2, Blood 29 mmol/L (21-32); Calcium, Blood 8.2 mg/dL (8.5-10.1); Chloride, Blood 107 mmol/L (98-108); Creatinine, Blood 0.67 mg/dL (0.60-1.20); Glucose, Blood 122 mg/dL (70-99); Magnesium, Blood 1.5 mg/dL (1.6-2.4); Phosphorus, Blood 2.4 mg/dL (2.5-4.9); Potassium, Blood 3.5 mmol/L (3.5-5.5); Sodium, Blood 140 mmol/L (136-145)
[2024-09-23 05:48] VITALS: BP 142/75
--- NOTE | 2024-09-23 05:54 | NUR ---
PT HAS SLEPT T/O THIS SHIFT NO ACUTE CHANGES NOTED. HAD 3 BMS THIS SHIFT 2 LARGE AND 1 SMALL SOFT. PT REPORTED HE DID NOT WANT IMODIUM THIS SHIFT.
[2024-09-23 07:36] VITALS: BP 135/69
[2024-09-23 11:28] VITALS: BP 147/73
[2024-09-23] MEDS ORDERED: IMODIUM A-D2 M1 PO (13:24)
--- NOTE | 2024-09-23 15:57 | NUR ---
DISCHARGE PT DISCHARGED AFTER EDUCATION WAS COMPLETED WITH THE PATIENT. PATIENT STATED NO FURTHER QUESTIONS AT THIS TIME. IVS REMOVED & INTACT. PT SHOWERED TODAY. AMBULATED WELL WITHIN ROOM WITH SUPERVISION. PT STATED HE SURPRISED HIMSELF WITH HOW WELL HE DID AMBULATING IN ROOM. PT EVEN DRESSED HIMSELF. PT SENT HOME WITH BELONGINGS AND FOOD FROM THE PATIENT PANTRY. NO OTHER ACUTE CHANGES IN ASSESSMENT PRIOR TO DC. PT WHEELED OU BY ELÍAS, PICKED UP BY HIS GORDON.
[2024-09-23 17:03] LABS: CK TOTAL 134 U/L (39-308); CK-BB 0 % (0-0); CK-MACRO TYPE I 0 % (0-0); CK-MACRO TYPE II 0 % (0-0); CK-MB 0 % (0-4); CK-MM 100 % (96-100)
== END 2024-09-23 15:45 | disposition home health service (06) | DRG 683 ==
LOC: ER 12:26 → PCU 15:00 → MEDS 09-21 16:54
PROVIDERS: Hospitalist; Internal Medicine; Internal Medicine Nephrology; Student in an Organized Health Care Education/Training Program; ADMIT Family Medicine
PROC: 5A09357 Assistance with Respiratory Ventilation, Less than 24 Consecutive Hours, Continuous Positive Airway Pressure (ICD-10-PCS; principal; 2024-09-19)
DX: N17.0 Acute kidney failure with tubular necrosis (principal); E87.1 Hypo-osmolality and hyponatremia; Z68.41 Body mass index [BMI] 40.0-44.9, adult; E87.20 Acidosis, unspecified; I48.20 Chronic atrial fibrillation, unspecified; R19.7 Diarrhea, unspecified; I95.9 Hypotension, unspecified; I10 Essential (primary) hypertension; G47.33 Obstructive sleep apnea (adult) (pediatric); F41.9 Anxiety disorder, unspecified; F17.220 Nicotine dependence, chewing tobacco, uncomplicated; E66.9 Obesity, unspecified; E87.6 Hypokalemia; E87.8 Other disorders of electrolyte and fluid balance, not elsewhere classified; E11.65 Type 2 diabetes mellitus with hyperglycemia; E86.0 Dehydration; F10.10 Alcohol abuse, uncomplicated; D72.829 Elevated white blood cell count, unspecified; E83.39 Other disorders of phosphorus metabolism; Z91.148 Patient's other noncompliance with medication regimen for other reason; Z86.73 Personal history of transient ischemic attack (TIA), and cerebral infarction without residual deficits; Z79.01 Long term (current) use of anticoagulants; Z79.4 Long term (current) use of insulin; Z79.84 Long term (current) use of oral hypoglycemic drugs
CPT/HCPCS: 36415; 51702; 70450; 71046; 72125; 76770; 80047; 80048; 80053; 80069; 81001; 82550; 82552; 82570; 82947; 83735; 83880; 84300; 84484; 85014; 85025; 87086; 87507; 93005; 93010; 94660; 94762; 96365; 97110; 97161; 99285-25; A9270; J0696; J1815; J3480; J7030; J7050; J7060; J7070

== ENCOUNTER 2024-11-30 10:30 | Inpatient (IN) | payer OTHER ==
[~2024-11-30] VITALS: Ht 182.9 cm; Wt 141.8 kg
[~2024-11-30 10:30] MED LIST changes: +AMLODIPINE BESYL5 MG PO; +ELIQUIS5 M3 PO; +FUROSEMIDE40 MG PO; +IMODIUM A-D2 M1 PO; +K-TAB ER20 ME1 PO; +TRAZ50 PO
[2024-11-30] MEDS ORDERED: Ipratropium/Albuterol SulF 2.5-0.5MG/3 ML Amp INH ONE (10:55)
[2024-11-30 11:07] LABS: BASOPHILS ABSOLUTE AUTO 0.03 K/mm3 (0.00-0.23); BASOPHILS PERCENT AUTO 0 % (0-2); EOSINOPHILS ABSOLUTE AUTO 0.08 K/mm3 (0.00-0.68); EOSINOPHILS PERCENT AUTO 1 % (0-6); Hematocrit 36.2 % (37.0-53.0); Hemoglobin 12.0 g/dL (13.5-17.5); IMMATURE GRAN ABSOLUTE AUTO 0.03 K/mm3 (0.00-0.10); IMMATURE GRAN PERCENT AUTO 0 % (0-1); LYMPHOCYTES ABSOLUTE AUTO 0.90 K/mm3 (0.84-5.20); LYMPHOCYTES PERCENT AUTO 12 % (21-46); MONOCYTES ABSOLUTE AUTO 0.52 K/mm3 (0.16-1.47); MONOCYTES PERCENT AUTO 7 % (4-13); Mean Corpuscular HGB Conc 33.1 g/dL (31.5-36.5); Mean Corpuscular Volume 100 fL (80-100); NEUTROPHILS ABSOLUTE AUTO 6.24 K/mm3 (1.96-9.15); NEUTROPHILS PERCENT AUTO 80 % (41-73); NRBC ABSOLUTE 0.00 K/mm3 (0.00-0.02); NRBC Auto 0.0 /100 WBC (0.0-0.2); Platelet Count 222 K/mm3 (150-400); RDW Coefficient Variation 13.3 % (11.7-14.2); RDW Standard Deviation 48.5 fL (35.1-46.3)
[2024-11-30 11:29] LABS: pH Blood Venous 7.31 (7.34-7.37)
[2024-11-30 11:30] LABS: Alanine Aminotransfer (ALT/SGP 23.0 U/L (12-78); Albumin, Blood 4.3 g/dL (3.4-5.0); Albumin/Globulin Ratio 1.4 (0.8-1.8); Anion Gap 9.0 mmol/L (3-11); Aspartate Aminotrans (AST/SGOT 12.0 U/L (12-37); Bilirubin, Total 1.0 mg/dL (0.1-1.0); Blood Urea Nitrogen 9.0 mg/dL (8-24); CO2, Blood 26.0 mmol/L (21-32); Calcium, Blood 9.3 mg/dL (8.5-10.1); Chloride, Blood 105.0 mmol/L (98-108); Creatinine, Blood 0.72 mg/dL (0.60-1.20); Globulin, Blood 3.1 g/dL (2.2-4.0); Glucose, Blood 169.0 mg/dL (70-99); Potassium, Blood 3.8 mmol/L (3.5-5.5); Sodium, Blood 136.0 mmol/L (136-145); Total Protein, Blood 7.4 g/dL (6.4-8.2)
[2024-11-30 12:10] LABS: Influenza A, PCR NEGATIVE (NEGATIVE); Influenza B, PCR NEGATIVE (NEGATIVE); Resp Syncytial Virus, PCR NEGATIVE (NEGATIVE); SARS-Cov-2 (COVID-19) PCR, MMC NEGATIVE (NEGATIVE)
[2024-11-30] MEDS ORDERED: HydrALAZINE HCl 20 MG / ML 1ML Vial IV PRN (14:25)
[2024-11-30] MEDS ORDERED: FLU VACC TS2025-26(6MOS UP)/PF 45 MCG/0.5 ML SYRINGE IM ONE (14:25)
[2024-11-30 16:00] VITALS: BP 171/84
[2024-11-30 18:18] LABS: pH Blood Venous 7.41 (7.34-7.37)
--- NOTE | 2024-11-30 18:36 | NUR ---
1600- PT ADMITTED TO 328 FROM ED, ORIENTED TO ROOM SET UP AND CALL LIGHT. PT'S RR 24, MILD DYSPNEA WITH ACTIVITY FROM WHEELCHAIR TO BED. OXYGEN SATS 93% ON ROOM AIR. BP MILDLY ELEVATED. WILL MAGALI
--- NOTE | 2024-11-30 18:48 | NUR ---
SUMMARY- PT INDEPENDANT IN ROOM. TOLERATING FOOD AND FLUIDS. DIURESING PT, MONITORING I/O- RESP EVEN UNLABORED. PLACED OXYGEN 2L/NC AFTER SPOT CHECKING SAT ON ROOM AIR 88%. WILL REPORT TO NOC RN
[2024-11-30 19:29] VITALS: BP 160/77
[2024-11-30 23:41] VITALS: BP 144/83
[2024-12-01] VITALS (7 sets, daily range): BP systolic 144–174; BP diastolic 76–100
[2024-12-01 05:20] LABS: BASOPHILS ABSOLUTE AUTO 0.05 K/mm3 (0.00-0.23); BASOPHILS PERCENT AUTO 1 % (0-2); EOSINOPHILS ABSOLUTE AUTO 0.14 K/mm3 (0.00-0.68); EOSINOPHILS PERCENT AUTO 2 % (0-6); Hematocrit 34.9 % (37.0-53.0); Hemoglobin 11.5 g/dL (13.5-17.5); IMMATURE GRAN ABSOLUTE AUTO 0.05 K/mm3 (0.00-0.10); IMMATURE GRAN PERCENT AUTO 1 % (0-1); LYMPHOCYTES ABSOLUTE AUTO 0.86 K/mm3 (0.84-5.20); LYMPHOCYTES PERCENT AUTO 11 % (21-46); MONOCYTES ABSOLUTE AUTO 0.62 K/mm3 (0.16-1.47); MONOCYTES PERCENT AUTO 8 % (4-13); Mean Corpuscular HGB Conc 33.0 g/dL (31.5-36.5); Mean Corpuscular Volume 101 fL (80-100); NEUTROPHILS ABSOLUTE AUTO 6.40 K/mm3 (1.96-9.15); NEUTROPHILS PERCENT AUTO 79 % (41-73); NRBC ABSOLUTE 0.00 K/mm3 (0.00-0.02); NRBC Auto 0.0 /100 WBC (0.0-0.2); Platelet Count 191 K/mm3 (150-400); RDW Coefficient Variation 13.4 % (11.7-14.2); RDW Standard Deviation 49.1 fL (35.1-46.3)
--- NOTE | 2024-12-01 05:31 | NUR ---
SHIFT SUMMARY PT ON 2L NC WITH CONTINUOUS PULSE OX. PT DID NOT TOLERATE THE HOSPITAL CPAP AFTER 2 HRS. PT INDPENDENT/ SBA IN ROOM TO BATHROOM. PT SOB AFTER ACTIVITY. BLOOD PRESSURE ELEVATED DURING THE NIGHT WHICH IMPROVED WITH IV HYDRALAZINE. PT SLEPT INTERMITTENTLY DURING THE NIGHT.
[2024-12-01 05:39] LABS: Anion Gap 8.0 mmol/L (3-11); Blood Urea Nitrogen 13.0 mg/dL (8-24); CO2, Blood 27.0 mmol/L (21-32); Calcium, Blood 8.8 mg/dL (8.5-10.1); Chloride, Blood 106.0 mmol/L (98-108); Creatinine, Blood 0.61 mg/dL (0.60-1.20); Glucose, Blood 130.0 mg/dL (70-99); Potassium, Blood 3.6 mmol/L (3.5-5.5); Sodium, Blood 137.0 mmol/L (136-145)
[2024-12-01] MEDS ORDERED: Insulin Regular 100 UNIT/ML 10ML Vial SC SCH (07:30)
[2024-12-01] MEDS ORDERED: Enoxaparin 40 MG/0.4 ML SYR SC SCH (09:00)
--- NOTE | 2024-12-01 17:11 | NUR ---
SHIFT SUMMARY PT A&OX4, AFIB 80S ON TELE, 2L O2 NC, IND IN ROOM, BP SLIGHTLY DECREASED WITH MEDICATION CHANGE. IV LASIX GIVEN X2, GOOD URINE OUTPUT, 2+ PITTING EDEMA BLE, PT STATES NORMAL. PT REMAINS SOB WITH EXERTION AND REPORTS COUGHING GREEN PHLEM. PT CALLS APPROPRIATLY, PLEASANT AND COOPERATIVE WITH CARE.
[2024-12-02 00:08] VITALS: BP 162/83
[2024-12-02 02:19] VITALS: BP 164/92
[2024-12-02 05:14] LABS: BASOPHILS ABSOLUTE AUTO 0.02 K/mm3 (0.00-0.23); BASOPHILS PERCENT AUTO 0 % (0-2); EOSINOPHILS ABSOLUTE AUTO 0.17 K/mm3 (0.00-0.68); EOSINOPHILS PERCENT AUTO 3 % (0-6); Hematocrit 33.7 % (37.0-53.0); Hemoglobin 11.1 g/dL (13.5-17.5); IMMATURE GRAN ABSOLUTE AUTO 0.04 K/mm3 (0.00-0.10); IMMATURE GRAN PERCENT AUTO 1 % (0-1); LYMPHOCYTES ABSOLUTE AUTO 0.78 K/mm3 (0.84-5.20); LYMPHOCYTES PERCENT AUTO 12 % (21-46); MONOCYTES ABSOLUTE AUTO 0.65 K/mm3 (0.16-1.47); MONOCYTES PERCENT AUTO 10 % (4-13); Mean Corpuscular HGB Conc 32.9 g/dL (31.5-36.5); Mean Corpuscular Volume 101 fL (80-100); NEUTROPHILS ABSOLUTE AUTO 4.86 K/mm3 (1.96-9.15); NEUTROPHILS PERCENT AUTO 75 % (41-73); NRBC ABSOLUTE 0.00 K/mm3 (0.00-0.02); NRBC Auto 0.0 /100 WBC (0.0-0.2); Platelet Count 201 K/mm3 (150-400); RDW Coefficient Variation 13.4 % (11.7-14.2); RDW Standard Deviation 49.2 fL (35.1-46.3)
[2024-12-02 05:39] LABS: Alanine Aminotransfer (ALT/SGP 18.0 U/L (12-78); Albumin, Blood 3.5 g/dL (3.4-5.0); Albumin/Globulin Ratio 1.3 (0.8-1.8); Anion Gap 6.0 mmol/L (3-11); Aspartate Aminotrans (AST/SGOT 11.0 U/L (12-37); Bilirubin, Total 1.1 mg/dL (0.1-1.0); Blood Urea Nitrogen 12.0 mg/dL (8-24); CO2, Blood 31.0 mmol/L (21-32); Calcium, Blood 8.8 mg/dL (8.5-10.1); Chloride, Blood 105.0 mmol/L (98-108); Creatinine, Blood 0.6 mg/dL (0.60-1.20); Globulin, Blood 2.7 g/dL (2.2-4.0); Glucose, Blood 129.0 mg/dL (70-99); Potassium, Blood 3.4 mmol/L (3.5-5.5); Sodium, Blood 139.0 mmol/L (136-145); Total Protein, Blood 6.2 g/dL (6.4-8.2)
--- NOTE | 2024-12-02 05:41 | NUR ---
SHIFT SUMMARY PATIENT A/O X4- IND IN THE ROOM. SLIGHTLY HYPERTENSIVE THROUGHOUT THE SHIFT, NO REPORT OF CHEST PAIN OR PRESSURE. TELE- AFIB IN THE 80'S. ON 2L VIA NC WHEN SLEEPING- NO REPORT OF SOB. VOIDING WELL- YELLOW URINE. NO ACUTE CHANGES. CALL LIGHT IN REACH, BED IN LOWEST POSITION. WILL REPORT TO ONCOMING RN.
[2024-12-02] MEDS ORDERED: Insulin Human Lispro 100 Units/ML 3ML Syringe SC SCH (07:30)
[2024-12-02 07:45] VITALS: BP 183/98
[2024-12-02] MEDS ORDERED: 8 HOUR ACETAMI650 MG PO (10:32)
[2024-12-02] MEDS ORDERED: FURO40 PO (12:24)
[2024-12-02] MEDS ORDERED: LISI20 PO (12:25)
== END 2024-12-02 13:48 | disposition home or self-care (01) | DRG 291 ==
LOC: ER 10:30 → MEDS 14:21 → ER 14:21 → MEDS 16:07
PROVIDERS: Family Medicine; Physician Assistant; ADMIT Family Medicine
PROC: 5A09357 Assistance with Respiratory Ventilation, Less than 24 Consecutive Hours, Continuous Positive Airway Pressure (ICD-10-PCS; principal; 2024-11-30)
DX: I11.0 Hypertensive heart disease with heart failure (principal); I50.33 Acute on chronic diastolic (congestive) heart failure; I71.00 Dissection of unspecified site of aorta; J96.01 Acute respiratory failure with hypoxia; J96.02 Acute respiratory failure with hypercapnia; I48.20 Chronic atrial fibrillation, unspecified; J44.9 Chronic obstructive pulmonary disease, unspecified; F41.9 Anxiety disorder, unspecified; G47.30 Sleep apnea, unspecified; D64.9 Anemia, unspecified; E66.9 Obesity, unspecified; Z68.39 Body mass index [BMI] 39.0-39.9, adult; E11.65 Type 2 diabetes mellitus with hyperglycemia; Z86.73 Personal history of transient ischemic attack (TIA), and cerebral infarction without residual deficits; Z90.49 Acquired absence of other specified parts of digestive tract; Z98.890 Other specified postprocedural states; Z79.01 Long term (current) use of anticoagulants; Z79.899 Other long term (current) drug therapy; Z87.891 Personal history of nicotine dependence
CPT/HCPCS: 36415; 71046; 80048; 80053; 82803; 82947; 83880; 84484; 85025; 87637; 93005; 93010; 93306; 94660; 94762; A9270; J0360; J1938